=== PATIENT | female | born 1975 | race Caucasian/White ===

== ENCOUNTER → 2019-04-20 17:45 | Outpatient (CLI) | payer BC, SELFPAY ==
--- NOTE | ~2019-04-20 | MM_ITS ---
EXAMINATION: MM screening [facility] BI w kenzie HISTORY: Screening mammogram TECHNIQUE: Craniocaudal and mediolateral oblique 3-D tomosynthesis images were obtained and synthetic 2-D images were generated. CAD analysis was submitted and interpreted. COMPARISON: 02/05/2018, 01/20/2018, 12/12/2016, 12/07/2015 BREAST PARENCHYMAL COMPOSITION: The breasts are extremely dense, which lowers the sensitivity of mamm ography. FINDINGS: There is no evidence of suspicious mass, calcification, or architectural distortion to sugg est malignancy in either breast. There has been no suspicious interval change. IMPRESSION: 1. No mammographic evidence of malignancy. 2. Recommend routine screening mammography in one year. BI-RADS Category 1: Negative Reviewed, dictated and finalized at location A. ATIONAL DIRECTOR
== END ==
PROVIDERS: Visit Provider Nurse Practitioner
DX: Z12.31 Encounter for screening mammogram for malignant neoplasm of breast (principal)
CPT/HCPCS: 77063; 77067

== ENCOUNTER 2019-06-24 13:43 | Emergency (ER) | payer BC, SELFPAY ==
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
--- NOTE | ~2019-06-24 | XR_ITS ---
EXAMINATION: XR hand LT min 3V DATE: 06/24/2019 14:41 INDICATION: Swelling at the proximal left fifth metacarpal post fall. TECHNIQUE: Posteroanterior, oblique and lateral views of the left hand were obtained. COMPARISON: None. FINDINGS: Alignment is normal. No fracture. Joint spaces are normal. Mild soft tissue swelling about the ulnar side of the hand including the left fifth metacarpophalangeal and proximal interphalangeal joints. IMPRESSION: 1. No acute osseous abnormality. Reviewed, dictated and finalized at location A.
[2019-06-24 13:43] VITALS: BP 108/71; PULSE 81; RESP 16; TEMP 36.5; O2SAT 100
[2019-06-24 14:14] VITALS: RESP 12; O2SAT 99
[2019-06-24] MEDS: ONDANSETRON INJ 4 MG/2 ML VIAL IV PUSH (15:00)
[2019-06-24] MEDS: MORPHINE SULFATE 2 MG/ML INJ IV PUSH (15:00)
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
[2019-06-24] MEDS: SODIUM CHLORIDE 0.9% IV 500 ML 999 ML IV CONT (15:48)
[2019-06-24 17:35] VITALS: BP 105/65; PULSE 75; RESP 16; O2SAT 99
== END 2019-06-24 17:35 | disposition home or self-care (01) ==
PROVIDERS: Emergency Provider Family Medicine; PCP Physician Assistant
DX: S01.01XA Laceration without foreign body of scalp, initial encounter (principal); S60.222A Contusion of left hand, initial encounter; V18.4XXA Pedal cycle driver injured in noncollision transport accident in traffic accident, initial encounter; Y93.55 Activity, bike riding
CPT/HCPCS: 12002; 70450; 72125; 73130; 96374; 96375; 99284; J2270; J2405; J7040; L0140

== ENCOUNTER → 2020-07-31 17:27 | Outpatient (CLI) | payer BC, SELFPAY ==
--- NOTE | ~2020-07-31 | MM_ITS ---
EXAMINATION: MM screening [facility] BI w kenzie HISTORY: Screening TECHNIQUE: Craniocaudal and mediolateral oblique 3-D tomosynthesis images were obtained and synthetic 2-D images were generated. CAD analysis was submitted and interpreted. COMPARISON: Comparison to multiple prior studies sequentially, with oldest reviewed study dated 09/07. BREAST PARENCHYMAL COMPOSITION: The breasts are extremely dense, which lowers the sensitivity of mamm ography. FINDINGS: There is no evidence of suspicious mass, calcification, or architectural distortion to sugg est malignancy in either breast. There has been no suspicious interval change. IMPRESSION: 1. No mammographic evidence of malignancy. 2. Recommend routine screening mammography in one year. BI-RADS Category 1: Negative Reviewed, dictated and finalized at location A.
== END ==
PROVIDERS: Visit Provider Nurse Practitioner
DX: Z12.31 Encounter for screening mammogram for malignant neoplasm of breast (principal)
CPT/HCPCS: 77063; 77067

== ENCOUNTER → 2021-09-16 09:25 | Outpatient (CLI) | payer OTHER, SELFPAY ==
--- NOTE | ~2021-09-16 | US_ITS ---
EXAMINATION: US pelvic complete DATE: 09/16/2021 14:11 INDICATION: Left sided fullness TECHNIQUE: Multiple transabdominal sonographic images of the pelvis were obtained. COMPARISON: None. FINDINGS: Uterus: 11.1 x 5.6 x 5.2 cm. Endometrial complex measures 0.8 cm. Right Ovary: 3.6 x 2.2 x 2.9 cm. Vascular flow is present. Left Ovary: 2 x 2.3 x 2.2 cm. Vascular flow is present. There is no free fluid in the pelvis. IMPRESSION: 1. Normal transabdominal pelvic ultrasound findings. Reviewed, dictated and finalized at location K.
--- NOTE | ~2021-09-16 | MMUS_ITS ---
EXAMINATION: MM diagnostic [facility] BI w kenzie, US breast BI complete HISTORY: Palpable left breast lump with pain TECHNIQUE: Additional 3-D tomosynthesis images of the breasts were performed and synthetic 2-D images were generated. CAD analysis was submitted and interpreted. High resolution bilateral complete breas t ultrasound was performed. COMPARISON: Comparison to multiple prior studies sequentially, with oldest reviewed study dated 08/2015. BREAST PARENCHYMAL COMPOSITION: The breasts are extremely dense, which lowers the sensitivity of mamm ography FINDINGS: MAMMOGRAPHIC FINDINGS: There are no suspicious masses, calcifications or architectural distortion in the left breast to sugg est malignancy. ULTRASOUND: Complete bilateral US of all 4 quadrants of the breasts and retroareolar region was reviewed. Right breast ultrasound: Normal heterogeneous echotexture without focal solid or cystic mass. Left breast: There are multiple cysts of the left breast. In addition at 1:00, 1 cm from the nipple i n the area of palpable concern there is an oval hypoechoic mass echogenic foci, mixed posterior atten uation, parallel orientation measuring 7 x 7 x 4 mm. No internal vascularity. IMPRESSION: 1. Heterogeneous solid-appearing left breast mass measuring 7 mm at 1:00, 1 cm from the nipple. 2. Ultrasound-guided left breast biopsy recommended. BI-RADS category 4, suspicious findings. Reviewed, dictated and finalized at location A. IMPRESSION: 1. Heterogeneous solid-appearing left breast mass measuring 7 mm at 1:00, 1 cm from the nipple. 2. Ultrasound-guided left breast biopsy recommended. BI-RADS category 4, suspicious findings.
== END ==
PROVIDERS: PCP Physician Assistant; Visit Provider Nurse Practitioner
DX: R92.8 Other abnormal and inconclusive findings on diagnostic imaging of breast (principal); R10.9 Unspecified abdominal pain
CPT/HCPCS: 76641; 76856; 77062; 77066; G0279

== ENCOUNTER 2021-10-14 11:03 | Outpatient (CLI) | payer OTHER, SELFPAY ==
--- NOTE | ~2021-10-14 | US_ITS ---
EXAMINATION: US GUIDED NEEDLE BIOPSY DATE: 10/14/2021 13:59 CDT INDICATION: Oval hypoechoic 7 x 7 x 4 mm mass at area of reportedly clinically palpable mass at 1:00 1 cm from nipple TECHNIQUE AND FINDINGS: The risks and potential benefits of the procedure were discussed with the patient, and written inform ed consent was obtained. Timeout procedure was performed. After sterile preparation of the left breas t, 1% lidocaine was utilized for local anesthesia. A 14G spring-loaded biopsy gun needle was advanced to the edge of the region of interest from a super olateral approach utilizing sonographic guidance. A total of three tissue core samples were obtained through the lesion. An Inrad tissue marker clip was then placed at the biopsy site. Hemostasis was achieved. A sterile bandage was applied. The patient tolerated procedure well and there was no evidence of immediate complication. The patien t was given verbal instructions prior to departing from the department. A two view mammogram was perf ormed to document tissue marker clip placement. The tissue samples were submitted to surgical patholo gy for histologic analysis. IMPRESSION: 1. Successful ultrasound guided biopsy of left breast 1:00 mass 1 cm from nipple with biopsy marker placement. Please refer to pathology report for histologic analysis. Reviewed, dictated and finalized at Location A. Reviewed, dictated and finalized at location C. IMPRESSION: 1. Successful ultrasound guided biopsy of left breast 1:00 mass 1 cm from nipp le with biopsy marker placement. Please refer to pathology report for histologi c analysis.
--- NOTE | ~2021-10-14 | MM_ITS ---
MM post biopsy invasive LT DATE: 10/14/2021 12:31 INDICATION: Post ultrasound-guided biopsy mammogram TECHNIQUE: Digital ML and CC views of left breast COMPARISON: None FINDINGS: A trigger biopsy marker is noted in the upper outer quadrant of the left breast following u ltrasound-guided biopsy of 1:00 lesion IMPRESSION: Status post upper outer quadrant left breast biopsy Reviewed, dictated and finalized at Location A. Reviewed, dictated and finalized at location C.
== END 2021-10-14 11:04 | disposition home or self-care (01) ==
LOC: ANHIMG 11:07
PROVIDERS: PCP Physician Assistant; Visit Provider Surgery
DX: N63.20 Unspecified lump in the left breast, unspecified quadrant (principal)
CPT/HCPCS: 19083; 88305; A4648

== ENCOUNTER 2023-07-27 09:57 | Emergency (ER) | payer BC, SELFPAY ==
--- NOTE | 2023-07-27 10:05 | ED.URI ---
HPI - URI/Sore Throat General Chief Complaint: Upper Respiratory Infection Stated Complaint: cold symptoms Time Seen by Provider: 07/27/23 09:59 Source: patient Mode of arrival: ambulatory Limitations: no limitations History of Present Illness HPI Narrative: Samantha is a 48-year-old female patient presenting to the clinic today with complaints of runny nose, cough, sore throat, fever, chills, and congestion x5 days. She reports she started with symptoms on Thursday with the sore throat. Seen her PCP on and was tested for strep and that was negative at that time. States her daughter currently is being treated for strep. Patient reports that she has never had strep before and this is the 2nd she has ever been in her life. States fever as high as 101. Fever does come down when taking Motrin. Has a productive cough with green phlegm. States she does feel as though there is drainage going down the back of her throat she is having some dizziness at times. Related Data Home Medications Medication Instructions Recorded Confirmed cholecalciferol (vitamin D3) 10 10 mcg PO DAILY 06/24/19 09/24/21 mcg (400 unit) capsule (Vitamin D3) Allergies Allergy/AdvReac Type Severity Reaction Status Date / Time Penicillins Allergy Mild Unknown Verified 07/27/23 10:13 amoxicillin Allergy Unknown Unknown Verified 09/24/21 13:59 Review of Systems Review of Systems: Pertinent positives per HPI. Patient denies any fever, chills, rash, headache, visual changes,shortness of breath, chest pain, palpitations, nausea, vomiting, diarrhea, constipation, abdominal pain, or any urinary issues. PMFSH Surgical History Surgical History Previous section x2 Social History Social History Smoking status: Never smoker Alcohol intake: never Gender identity (if verbalized by the patient): Female Comments At the time of my signature, I reviewed and agree with the nursing past medical, surgical, social, and family history. There is no relevant family history pertinent to the patient complaint. Exam Narrative: General: Well-developed, well nourished, in no apparent distress Head: Normocephalic, atraumatic Eyes: Pupils equally round and reactive to light bilaterally, EOM intact, sclera and conjunctive clear, no discharge, lids normal Ears: TMs intact and congested, ear canals clear, no drainage, grossly hearing normal. Nose: Nares patent, clear nasal discharge, no inflammation, no sinus tenderness. Mouth: Oropharynx red without lesions or masses, good dentition, MMM. Postnasal drip Neck: Supple, trachea midline, no enlargement of anterior or posterior cervical nodes, no thyroid masses or goiter palpable. Cardio: Regular rate and rhythm, s1 and s2 normal, no murmur appreciated. Resp: Clear to auscultation bilaterally anteriorly and posteriorly, no rhonchi, rales, wheezing or rubs Course Course Emergency Course: Portions of this record may have been created with voice recognition software. Level of Care: Express Care Visit Vital Signs Vital signs: Vital Signs Temperature 36.9 C 07/27/23 10:06 Pulse Rate 92 07/27/23 10:06 Respiratory Rate 18 07/27/23 10:06 Blood Pressure 125/79 07/27/23 10:06 Pulse Oximetry 99 07/27/23 10:06 Oxygen Delivery Room Air 07/27/23 10:06 Temperature 36.9 C 07/27/23 10:06 Pulse Rate 92 07/27/23 10:06 Respiratory Rate 18 07/27/23 10:06 Blood Pressure 125/79 07/27/23 10:06 Pulse Oximetry 99 07/27/23 10:06 Oxygen Delivery Room Air 07/27/23 10:06 Vital signs reviewed MDM - URI/Sore Throat MDM Narrative Medical decision making narrative: At the time of visit patient is resting comfortably on the exam table. Patient appears to be nontoxic. Labs: Strep test was negative in the clinic today. We will send strep for cultu
[2023-07-27 10:06] VITALS: BP 125/79; PULSE 92; RESP 18; TEMP 36.9; O2SAT 99
== END 2023-07-27 10:37 | disposition home or self-care (01) ==
PROVIDERS: Emergency Provider Nurse Practitioner Family; PCP Physician Assistant
DX: R09.82 Postnasal drip (principal); B34.9 Viral infection, unspecified; J06.9 Acute upper respiratory infection, unspecified; J02.9 Acute pharyngitis, unspecified
CPT/HCPCS: 87081; 87880; 99213; G0463

== ENCOUNTER 2024-04-23 09:38 | Outpatient (CLI) | payer BC, SELFPAY ==
--- NOTE | ~2024-04-23 | MM_ITS ---
EXAMINATION: MM screening [facility] BI w kenzie HISTORY: Screening mammogram TECHNIQUE: Craniocaudal and mediolateral oblique 3-D tomosynthesis images were obtained and synthetic 2-D images were generated. CAD analysis was submitted and interpreted. COMPARISON: 09/16/2021, 07/31/2020, 04/20/2019 BREAST PARENCHYMAL COMPOSITION:Dense: The breasts are extremely dense, which lowers the sensitivity o f mammography. FINDINGS: Questionable subtle ovoid mass or asymmetry at the slightly outer left breast, best seen on the CC kenzie views. No parenchymal abnormality of the right breast identified. No suspicious microcal cifications. IMPRESSION: Questionable left breast mass or asymmetry, as above. Spot compression views, and possibly ultrasound , recommended for further evaluation. BI-RADS Category 0: Incomplete: Needs additional imaging evaluation. Reviewed, dictated and finalized at [facility]. ERY SUPERVISOR IMPRESSION: Questionable left breast mass or asymmetry, as above. Spot compression views, a nd possibly ultrasound, recommended for further evaluation. BI-RADS Category 0: Incomplete: Needs additional imaging evaluation.
--- OUTSIDE RECORDS SUMMARY | 2024-04-23 09:42 | XMS_ITS | Continuity of Care Document ---
Author Organization [facility] Address [address] [place] [address] Phone Care Team Providers Care Biofuels Processing Technician Name Role Phone Unavailable Unavailable Unavailable Advance Directives Directive Yes / No Effective Date File Name No Information Encounters Encounter Description Practice Location Reason(s) For Visit Diagnoses Date Provider Providers Copied on Encounter [facility], [address] [facility], [place], [place], [id number], tel:[phone] [facility] No Information No Information Referring Provider: MELISSA Castillo, [address], [place], [address]. tel:[phone] Family History Family Member Type Diagnosis Age At Onset No Information Payers Payer name Insurance type Covered republican ID Authoriza tiskip(s) [facility] [id number] CI [id number] Social History Type Description Quantity Date Captured Comments Sex Female Smoking Status No Information Chief Complaint And Reason For Visit No Information History Of Present Illness Encounter Date Complaint History Of Prese nt Illness No Information Instructions Date Instruction Additional Infor mation No Information Assessments Type Assessment Date No Information
--- OUTSIDE RECORDS SUMMARY | 2024-04-23 09:42 | XMS_ITS | Clinical Summary ---
Author Organization [facility] Address [address] [place] [id number] Phone Care Team Providers Care Staking Engineer Name Role Phone Bo Gudino MD Primary Care Provider + Social History Tobacco Use Types Packs/Day Years Used Date Smoking Tobacco: Never Assessed Comments Unknown Sex and Gender Information Value Date Recorded Sex Assigned at Not on file Legal Sex Female 8:14 AM CDT Gender Identity Not on file Sexual Orientation Not on file Plan of Treatment Health Maintenance Due Date Last Done Comments DTAP/TDAP/TD VACCINES (1 - Tdap) 1992 HEPATITIS B VACCINES (1 of 3 - 19+ 3-dose series) 1992 CERVICAL CANCER SCREENING 06/25/2003 BREAST CANCER SCREENING 2013 COLORECTAL SCREENING 2018 Colorectal Cancer Screening 2018 FIT-DNA Q 3 years 2018 FIT/FOBT Q 1 year 2018 Flex Sig/CT Colonography Q 5 years 2018 ZOSTER VACCINE (1 of 2) 06/25/2023 INFLUENZA VACCINE (#1) 2023 PNEUMOCOCCAL VACCINE 0-64 YEARS Aged Out No longer eligible based on patient's age to complete this topic Insurance [facility] [id number] Care Teams Staking Engineer Relationship Specialty Start Date End Date Bo Gudino MD PCP - General Internal Medicine 06/16/12
== END 2024-04-23 09:39 | disposition home or self-care (01) ==
LOC: ANHIMG 09:40
PROVIDERS: PCP Physician Assistant; Visit Provider Obstetrics & Gynecology Gynecology
DX: Z12.31 Encounter for screening mammogram for malignant neoplasm of breast (principal); R92.8 Other abnormal and inconclusive findings on diagnostic imaging of breast
CPT/HCPCS: 77063; 77067

== ENCOUNTER 2024-05-09 13:23 | Outpatient (CLI) | payer BC, SELFPAY ==
--- NOTE | ~2024-05-09 | MMUS_ITS ---
EXAMINATION: MM diagnostic [facility] LT w kenzie, US breast LT limited HISTORY: Questionable left breast mass or asymmetry TECHNIQUE: Additional 3-D tomosynthesis images of the left breast were performed and synthetic 2-D im ages were generated. CAD analysis was submitted and interpreted. High resolution limited left breast ultrasound was performed. COMPARISON: 04/23/2024 BREAST PARENCHYMAL COMPOSITION: The breasts are extremely dense, which lowers the sensitivity of mamm ography. FINDINGS: MAMMOGRAPHIC FINDINGS: Possible 4 mm persistent low-density circumscribed mass at the outer left breast. ULTRASOUND: At the 1:00 position left breast, there is a 5 x 7 x 3 mm hypoechoic mass. No posterior shadowing. Qu estionable tiny fatty hilum. Questionable 1.4 x 1.5 x 0.3 cm parallel circumscribed mass versus amairani l fibroglandular tissue at the 2:00 position, 1 cm from the nipple. IMPRESSION: Probable benign mass or lymph node in the left breast, as detailed above. 6 month follow-up mammogram and ultrasound left breast recommended to reassess. BI-RADS category 3, probably benign findings. Reviewed, dictated and finalized at location . IMPRESSION: Probable benign mass or lymph node in the left breast, as detailed above. 6 mon th follow-up mammogram and ultrasound left breast recommended to reassess. BI-RADS category 3, probably benign findings.
--- OUTSIDE RECORDS SUMMARY | 2024-05-09 15:24 | XMS_ITS | Clinical Summary ---
Author Organization [facility] Address [address] [place] [id number] Phone Care Team Providers Care Rug Weaver Name Role Phone Bo Gudino MD Primary [...] 06/25/2023 INFLUENZA VACCINE (#1) 2023 PNEUMOCOCCAL VACCINE 0-49 YEARS Aged Out No longer eligible based on patient's age to complete this topic Insurance [facility] [id number] Care Teams Rug Weaver Relationship Specialty Start Date End Date Bo Gudino MD PCP - General Internal Medicine 06/16/12
--- OUTSIDE RECORDS SUMMARY | 2024-05-09 15:24 | XMS_ITS | Continuity of Care Document ---
Author Organization [facility] Address [address] [place] [address] Phone Care Team Providers Care Oracle Fusion Middleware Developer Name Role Phone Unavailable Unavailable Unavailable Advance Directives Directive Yes / No Effective Date File Name No Information Encounters Encounter Description Practice Location Reason(s) For Visit Diagnoses Date Provider Providers Copied on Encounter [facility], [address] [facility], [place], [place], [id number], tel:[phone] [facility] No Information No Information Referring Provider: MELISSA Castillo, [address], [place], [address]. tel:[phone] Family History Family Member Type Diagnosis Age At Onset No Information Payers Payer name Insurance type Covered republican ID Authoriza tiskip(s) [facility] [id number] CI [id number] Social History Type Description Quantity Date Captured Comments Sex Female Smoking Status No Information Chief Complaint And Reason For Visit No Information History Of Present Illness Encounter Date Complaint History Of Prese nt Illness No Information Instructions Date Instruction Additional Infor mation No Information Assessments Type Assessment Date No Information
== END 2024-05-09 13:24 | disposition home or self-care (01) ==
LOC: ANHIMG 13:28
PROVIDERS: PCP Physician Assistant; Visit Provider Nurse Practitioner Women's Health
DX: R92.8 Other abnormal and inconclusive findings on diagnostic imaging of breast (principal)
CPT/HCPCS: 76642; 77061; 77065; G0279

== ENCOUNTER 2024-11-01 13:17 | Outpatient (CLI) | payer BC, SELFPAY ==
--- NOTE | ~2024-11-01 | MMUS_ITS ---
EXAMINATION: US breast LT limited, MM diagnostic carey LT w kenzie HISTORY: Six-month follow-up left breast TECHNIQUE: [Additional images of the left breast were performed using full field digital mammography. 3-D tomosynthesis were also obtained and synthetic 2-D images were generated. CAD analysis was submitted and interpreted. High resolution left breast ultrasound was performed of the area of concern at the 1 to 2:00 position.] ] COMPARISON: Mammograms from 11/01/2024, 05/09/2024, 04/23/2024; left breast ultrasound 05/09/2024 BREAST PARENCHYMAL COMPOSITION: The left breast is extremely dense, which lowers the sensitivity of mammography. FINDINGS: MAMMOGRAPHIC FINDINGS: No suspicious masses, calcifications or architectural distortion in the left breast ULTRASOUND: There is a 6 x 9 x 4 mm septated cyst in the left breast at the 1:00 position 1 cm from the nipple. Normal tissue is noted in the left breast at the 2:00 position. IMPRESSION/RECOMMENDATION: No sonographic or mammographic evidence for malignancy in the left breast. The findings are benign. BIRADS 2-Benign Reviewed, dictated and finalized at location Q. IMPRESSION/RECOMMENDATION: No sonographic or mammographic evidence for malignancy in the left breast. The findings are benign. BIRADS 2-Benign IMPRESSION/RECOMMENDATION: No sonographic or mammographic evidence for malignancy in the left breast. The findings are benign. BIRADS 2-Benign
--- OUTSIDE RECORDS SUMMARY | 2024-11-01 13:29 | XMS_ITS | Clinical Summary ---
Author Organization [facility] Address [address] [place] [address] Phone Care Team Providers Care Bean Snapper Name Role Phone Bo Gudino MD Primary [...] (1 of 3 - 19+ 3-dose series) 06/01 HPV/Cotest (21-29) 1994 CERVICAL CANCER SCREENING 06/25/2003 HPV/Cotest (30-65) 06/25/2003 PAP SMEAR 06/25/2003 BREAST CANCER SCREENING 2013 COLORECTAL SCREENING 2018 Colorectal Cancer Screening 2018 FIT-DNA Q 3 years 2018 FIT/FOBT Q 1 year 2018 Flex Sig/CT Colonography Q 5 years 2018 ZOSTER VACCINE (1 of 2) 06/25/2023 INFLUENZA VACCINE (#1) 2024 Insurance [facility] [employer] PPO [id number] Care Teams Bean Snapper Relationship Specialty Start Date End Date Bo Gudino MD PCP - General Internal Medicine 06/16/12
== END 2024-11-01 13:18 | disposition home or self-care (01) ==
LOC: ANHFOHIMG 13:18
PROVIDERS: PCP Physician Assistant; Visit Provider Nurse Practitioner Women's Health
DX: N63.20 Unspecified lump in the left breast, unspecified quadrant (principal)
CPT/HCPCS: 76642; 77061; 77065; G0279